=== PATIENT | female | born 1965 | race Caucasian/White ===

== ENCOUNTER 2016-11-27 13:08 | Emergency (ER) | payer MEDICAID ==
[~2016-11-27] VITALS: Ht 177.8 cm; Wt 92.1 kg
[2016-11-27 13:44] VITALS: BP 151/81
[2016-11-27] MEDS ORDERED: LORazepam 2MG/ML-1ML VIAL IV ONE (14:15)
[2016-11-27 14:46] LABS: Basophils # (auto) 0.1 uL; Basophils % (auto) 1.9 % (0.0-2.0); DEFINITIVE VIEW TRANSMISSION; Eosinophils # (auto) 0.1 uL; Hemoglobin 13.1 g/dL (12.2-16.2); Lymphocytes # (auto) 1.8 uL; Lymphocytes % (auto) 30.1 % (10.0-50.0); Mean Corpuscular Hemoglobin 25.8 pg (28.0-32.0); Mean Corpuscular Hgb Conc. 34.4 g/dL (32.0-36.0); Mean Platelet Volume 8.8 fL (7.4-10.4); Monocytes # (auto) 0.3 uL; Monocytes % (auto) 4.9 % (0.0-12.0); Neutrophils # (auto) 3.8 uL; Neutrophils % (auto) 62.1 % (37.0-80.0); Platelet Count (auto) 252 10^3/uL (140-450); Red Cell Distribution Width 15.7 % (11.6-16.0); White Blood Cell 6.1 10^3/uL (4.4-10.8)
[2016-11-27 15:00] LABS: Albumin 3.5 g/dL (3.4-5.0); Anion Gap 7 (5-15); Aspartate Aminotransferase 29 U/L (15-37); BUN/Creatinine Ratio 20.4; Blood Urea Nitrogen 19 mg/dL (7-18); Calcium 9.3 mg/dL (8.5-10.1); Carbon Dioxide 27 mmol/L (21-32); Chloride 103 mmol/L (98-107); GFR African American 81 mL/min; GFR Non-African American 67 mL/min; Glucose 208 mg/dL (74-106); Potassium 4.5 mmol/L (3.5-5.1); Sodium 137 mmol/L (136-145)
[2016-11-27 15:04] LABS: Alkaline Phosphatase 103 U/L (45-117); Bilirubin, Total 0.5 mg/dL (0.2-1.0); Total Protein 8.1 g/dL (6.4-8.2)
[2016-11-27 15:35] LABS: Urine Bilirubin Negative (Negative); Urine Blood Negative /uL (Negative); Urine Color Yellow (Yellow); Urine Ketone Negative (Negative); Urine Nitrite Negative (Negative); Urine RBC <1 /hpf (0 - 4); Urine Squamous Epithelial Cell FEW /hpf (<5); Urine Urobilinogen Normal (Negative); Urine pH 6.5 (5.0-8.0)
[2016-11-27 15:39] LABS: Urine Glucose 4+ mg/dL (Normal)
== END 2016-11-27 17:25 | disposition home or self-care (01) ==
LOC: ER 13:08 → EDBD 13:08 → ER 17:25
DX: R07.89 Other chest pain (principal); F41.9 Anxiety disorder, unspecified; E11.9 Type 2 diabetes mellitus without complications
CPT/HCPCS: 36415; 70450; 71010; 80053; 81001; 84484; 85025; 93005; 96374; 99285; J2060